=== PATIENT | female | born 1975 | race Caucasian/White ===

== ENCOUNTER 2020-10-10 03:17 | Emergency (ER) | payer SELFPAY ==
[~2020-10-10] VITALS: Ht 162.6 cm; Wt 65.0 kg
[2020-10-10] MEDS ORDERED: ONDANSETRON 2MG/ML, 2ML ONE (03:26)
[2020-10-10] MEDS ORDERED: MORPHINE SULFATE 4 MG/ML, 1ML ONE ×2 (03:27→04:50)
[2020-10-10] MEDS ORDERED: SODIUM CHLORIDE FLUSH 10ML SYR IVF ONE (03:30)
[2020-10-10] MEDS ORDERED: ONDANSETRON 2MG/ML, 2ML IVPush ONE (03:30)
[2020-10-10] MEDS ORDERED: PLEASE ENTER ALLERGIES MC SCH (03:30)
[2020-10-10] MEDS: MORPHINE SULFATE 4 MG/ML, 1ML IVPush PRN ×2 (03:31→04:53)
--- NOTE | 2020-10-10 03:36 | NUR ---
pt bib remsa to room 17. picked up at home stating that she has severe abdominal pain to right upper quad that radiates up towards her back. piv to right hand 20g, per ems. 2 rounds of fentanyl pain meds, 100mcg each dose. x2. emesis yellowish and bilious. history of htn. fsbs by ems is 158mg/dl.
--- NOTE | 2020-10-10 04:11 | NUR ---
pt back from ultrasound, and still complaining of pain and walking around room. MD notified.
--- NOTE | 2020-10-10 04:21 | NUR ---
ekg done and pt tolerated well. results to MD. pt has relief of pain and is resting in bed on cr monitor.
[2020-10-10 04:44] LABS: BASOPHILS % (AUTO) 0 % (0-1); EOSINOPHILS % (AUTO) 0 % (1-7); LYMPHOCYTES % (AUTO) 8 % (22-44); MEAN CORPUSCULAR HGB CONC 33.3 g/dL (32.4-35.8); MEAN PLATELET VOLUME 8.1 fL (7.4-10.4); MONOCYTES % (AUTO) 4 % (2-9); NEUTROPHILS % (AUTO) 88 % (42-75); PLATELET COUNT 259 x10^3/uL (130-400); RED BLOOD COUNT 4.32 x10^6/uL (3.82-5.3); RED CELL DISTRIBUTION WIDTH 14.6 % (9.6-15.2)
[2020-10-10 04:51] LABS: MD NO
[2020-10-10 04:54] LABS: ALANINE AMINOTRANSFERASE 24 U/L (12-78); ALBUMIN 3.9 g/dL (3.4-5.0); ANION GAP 7 mmol/L (5-15); CALCIUM 8.2 mg/dL (8.5-10.1); CHLORIDE 109 mmol/L (98-107); CREATININE 0.63 mg/dL (0.55-1.02)
--- NOTE | 2020-10-10 04:55 | NUR ---
pt in bed and complaining of 10/10 pain to abdomen still and 2nd dose of Morphine 4mg given iv, per emar. states some relief, remains on cr monitor, and o2 sat probe. good aeration and oxygenation.
[2020-10-10 04:59] LABS: ALKALINE PHOSPHATASE 72 U/L (45-117); BILIRUBIN,TOTAL 0.4 mg/dL (0.2-1.0); TOTAL PROTEIN 7.6 g/dL (6.4-8.2); TROPONIN I < 0.015 ng/mL (0.000-0.045)
[2020-10-10 05:11] VITALS: BP 137/76
--- NOTE | 2020-10-10 05:33 | NUR ---
f/u and d/c instructions given to pt and she v/u. piv to right hand d/c'd without incident and cath tip intact. no bleeding.
== END 2020-10-10 05:35 | disposition home or self-care (01) ==
LOC: ED 05:20
DX: K80.20 Calculus of gallbladder without cholecystitis without obstruction (principal); R10.11 Right upper quadrant pain; R11.2 Nausea with vomiting, unspecified
CPT/HCPCS: 36415; 76700; 80053; 80320; 83690; 84484; 84703; 85025; 93005; 96374; 96375; 96376; 99285; J2270; J2405; G0480